=== PATIENT | female | born 1990 | race Two or more races ===

== ENCOUNTER 2018-11-29 23:50 | Observation (INO) | payer SELFPAY ==
[~2018-11-29] VITALS: Ht 167.6 cm; Wt 59.0 kg
[2018-11-30] MEDS ORDERED: LACTATED RINGER'S 1,000 ML IV SCH (01:56)
[2018-11-30] MEDS ORDERED: TERBUTALINE SULFATE 1 MG/ML 1ML VIAL SC PRN (02:00)
[2018-11-30] MEDS ORDERED: PENICILLIN G POT 5MIL/D5 50ML 50 ML IV ONE (02:15)
[2018-11-30] MEDS ORDERED: MAGNESIUM SULFATE 100 ML IV ONE (02:15)
[2018-11-30] MEDS ORDERED: MAGNESIUM SULFATE 40MG/ML 1,000 ML IV SCH (02:50)
[2018-11-30] MEDS ORDERED: BETAMETHASONE ACET (6MG/ML) 5ML VIAL IM SCH ×2 (02:50→10:00)
[2018-11-30] MEDS ORDERED: BETAMETHASONE ACET (6MG/ML) 5ML VIAL ONE (02:53)
[2018-11-30 03:06] LABS: Basophils # (auto) 0 uL; Basophils % (auto) 0.2 % (0.0-2.0); Eosinophils # (auto) 0.2 uL; Eosinophils % (auto) 2.1 % (0.0-7.0); Hematocrit 34.2 % (36.0-46.0); Hemoglobin 11.9 g/dL (12.2-16.2); Lymphocytes # (auto) 2.6 uL; Lymphocytes % (auto) 26.4 % (10.0-50.0); Mean Corpuscular Hemoglobin 29.7 pg (28.0-32.0); Mean Corpuscular Hgb Conc. 34.7 g/dL (32.0-36.0); Mean Corpuscular Volume 85.7 fL (80.0-100.0); Monocytes # (auto) 0.9 uL; Monocytes % (auto) 8.5 % (0.0-12.0); Neutrophils # (auto) 6.3 uL; Neutrophils % (auto) 62.8 % (37.0-80.0); Platelet Count (auto) 212 10^3/uL (140-450); Red Blood Cells 3.99 10^6/uL (4.0-5.20); Red Cell Distribution Width 13.3 % (11.8-14.3)
[2018-11-30 03:24] LABS: INR 0.96 (0.9-1.15); Partial Thromboplastin Time 30.2 sec (23.64-32.05)
[2018-11-30 03:28] LABS: Albumin 2.8 g/dL (3.4-5.0); Calcium 8.6 mg/dL (8.5-10.1); Potassium 3.6 mmol/L (3.5-5.1)
[2018-11-30 03:33] LABS: BUN/Creatinine Ratio 15.6; Bilirubin, Total 0.2 mg/dL (0.2-1.0); Total Protein 6.5 g/dL (6.4-8.2)
[2018-11-30 04:14] LABS: Urine WBC None Seen /hpf (0 - 5)
[2018-11-30 04:35] LABS: Urine Bacteria NONE SEEN /hpf (None Seen); Urine Blood Negative /uL (Negative); Urine Specific Gravity 1.008 (1.001-1.035)
[2018-11-30 04:47] LABS: Alcohol, Urine < 3.0 mg/dL (0-5); Amphetamine Screen, Urine NEGATIVE (NEGATIVE); Cannabinoid Screen, Urine NEGATIVE (NEGATIVE); Phencyclidine Screen, Urine NEGATIVE (NEGATIVE)
[2018-11-30 05:04] LABS: Barbiturate Scree,Urine NEGATIVE (NEGATIVE); Benzodiazephine Screen, Urine NEGATIVE (NEGATIVE); Cocaine Screen, Urine NEGATIVE (NEGATIVE); Opiate Scree,Urine NEGATIVE (NEGATIVE)
[2018-11-30] MEDS ORDERED: PENICILLIN G POTASSIUM 2,500,000 UNITS in D5W 5% 50 ML IV SCH (06:30)
[2018-11-30] MEDS ORDERED: ceFAZolin 1GM/50ML 50 ML IV SCH (06:30)
[2018-11-30] MEDS ORDERED: PREN-153 OR (06:32)
[2018-12-01 04:06] LABS: RPR Non Reactive (Non Reactive)
[2018-12-01 07:09] LABS: Rubella Antibodies, IgG <0.90 index (Immune >0.99)
== END 2018-11-30 10:15 | disposition short-term general hospital (02) | DRG 998 ==
LOC: LDRP 23:50
PROVIDERS: ADMIT Specialist; ATTEND Specialist
DX: O09.33 Supervision of pregnancy with insufficient antenatal care, third trimester (principal); O60.03 Preterm labor without delivery, third trimester; Z3A.29 29 weeks gestation of pregnancy
CPT/HCPCS: 36415; 51702; 59025; 76805; 80053; 80307; 81001; 81002; 83735; 84112; 85025; 85610; 85730; 86592; 86703; 86762; 86850; 86900; 86901; 87340; 94760; 96361; 96365; 96366; 96367; 96368; 96372; G0378; J0690; J0702; J2540; J3105; J3475; J7060

== ENCOUNTER 2018-12-16 20:21 | Observation (INO) | payer SELFPAY ==
[~2018-12-16] VITALS: Ht 167.6 cm; Wt 102.1 kg
[~2018-12-16 20:21] MED LIST: PREN-153 OR
[2018-12-16] MEDS ORDERED: TERBUTALINE SULFATE 1 MG/ML 1ML VIAL SC ONE (20:52)
[2018-12-16] MEDS: TERBUTALINE SULFATE 1 MG/ML 1ML VIAL SC SCH ×2 (20:52→22:10)
[2018-12-16] MEDS ORDERED: ceFAZolin 1GM/50ML 50 ML IV ONE (20:56)
[2018-12-16] MEDS ORDERED: MAGNESIUM SULFATE 100 ML IV ONE (20:57)
[2018-12-16] MEDS ORDERED: MAGNESIUM SULFATE 40MG/ML 1,000 ML IV ONE (20:57)
[2018-12-16] MEDS ORDERED: LIDOCAINE 2%HCL (LOCAL ANESTH.) INJ 20ML MDV ONE (21:22)
[2018-12-16] MEDS ORDERED: LACT. RINGERS/OXYTOCIN 20UNITS 0 ML IV ONE (21:23)
[2018-12-17] MEDS ORDERED: TERBUTALINE SULFATE 1 MG/ML 1ML VIAL SC ONE (00:05)
[2018-12-17] MEDS ORDERED: ceFAZolin 1GM/50ML 50 ML IV ONE ×2 (00:28)
[2018-12-17] MEDS ORDERED: TERBUTALINE SULFATE 1 MG/ML 1ML VIAL SC SCH (00:40)
[2018-12-17] MEDS ORDERED: MAGNESIUM SULFATE 40MG/ML 1,000 ML IV SCH ×2 (01:37→01:45)
[2018-12-17] MEDS ORDERED: MAGNESIUM SULFATE 100 ML IV SCH ×2 (01:45→02:00)
[2018-12-17] MEDS ORDERED: LACTATED RINGER'S 1,000 ML IV ONE ×2 (01:58)
== END 2018-12-17 00:30 | disposition short-term general hospital (02) | DRG 833 ==
LOC: LDRP 20:21 → UNDODISOB 12-17 00:30
PROVIDERS: ADMIT Specialist; ATTEND Specialist
DX: O62.9 Abnormality of forces of labor, unspecified (principal); Z3A.31 31 weeks gestation of pregnancy; Z87.891 Personal history of nicotine dependence
CPT/HCPCS: 51702; 59025; 76805; 81002; 94760; 96365; 96372; G0378; J0690; J3105; J3475; J2590